=== PATIENT | female | born 2000 ===

== ENCOUNTER 2018-02-28 22:56 | Emergency (ER) | payer SELFPAY ==
[2018-02-28 23:05] VITALS: BP 105/68; PULSE 98; RESP 16; TEMP 99; O2SAT 100
--- NOTE | 2018-02-28 23:28 | ED PDOC ---
Upper Extremity Pain/Injury Time Seen by Provider: 02/28/18 23:04 Chief Complaint (Nursing): Upper Extremity Problem/Injury Chief Complaint (Provider): Left shoulder pain, 5 days History Per: Patient History/Exam Limitations: no limitations Onset/Duration Of Symptoms: Days Additional Complaint(s): 17 yo female with no medical problems presents for evaluation of left shoulder pain x 3 days. Pt states the first day she thought she slept on it wrong. PT reports dull pain at rest and much worse when attempting to move left shoulder. No trauma. PT denies change in activities but states the night before pain she did do the dishes. No similar in the past. No numbness/tingling. Past Medical History Reviewed: Historical Data, Nursing Documentation, Vital Signs Vital Signs: Last Vital Signs Temp 99 F 02/28/18 23:02 Pulse 98 H 02/28/18 23:02 Resp 16 02/28/18 23:02 BP 105/68 02/28/18 23:02 Pulse Ox 100 02/28/18 23:02 - Medical History PMH: No Chronic Diseases - Surgical History Surgical History: No Surg Hx - Family History Family History: States: No Known Family Hx - Living Arrangements Living Arrangements: With Family - Social History Current smoker - smoking cessation education provided: No - Allergies Allergies/Adverse Reactions: Allergies Allergy/AdvReac Type Severity Reaction Status Date / Time cat dander Allergy RASH Verified 02/28/18 23:06 dog dander Allergy RASH Verified 02/28/18 23:06 hazelnut Allergy RASH Verified 02/28/18 23:06 Review of Systems ROS Statement: Except As Marked, All Systems Reviewed And Found Negative Constitutional: Negative for: Fever, Chills Musculoskeletal: Positive for: Shoulder Pain Skin: Negative for: Rash Physical Exam - Reviewed Nursing Documentation Reviewed: Yes Vital Signs Reviewed: Yes - Physical Exam Appears: Positive for: Well, Non-toxic, No Acute Distress Head Exam: Positive for: ATRAUMATIC, NORMAL INSPECTION, NORMOCEPHALIC Skin: Positive for: Normal Color, Warm, DRY Eye Exam: Positive for: Normal appearance ENT: Positive for: Normal ENT Inspection Neck: Positive for: Normal Cardiovascular/Chest: Negative for: Bradycardia, Tachycardia Respiratory: Negative for: Accessory Muscle Use, Respiratory Distress Pulses-Radial (L): 2+ Pulses-Radial (R): 2+ Back: Positive for: Normal Inspection Extremity: Positive for: Capillary Refill. Negative for: Normal ROM (Decreased shoulder abduction ), Tenderness, Deformity, Swelling Neurologic/Psych: Positive for: Alert, Oriented - ECG O2 Sat by Pulse Oximetry: 100 Medical Decision Making Medical Decision Making: XR normal. Disposition - Clinical Impression Clinical Impression: Shoulder pain - Patient ED Disposition Is Patient to be Admitted: No Counseled Patient/Family Regarding: Diagnosis, Need For Followup - Disposition Referrals: Mir Melchor III, MD [Staff Provider] - [facility] [Outside] [facility] [place] [Outside] Disposition: Routine/Home Disposition Time: 23:28 Condition: GOOD Instructions: Shoulder Pain (DC) Forms: [employer] (Greenlandic)
--- NOTE | 2018-03-01 16:36 | RAD ---
Date of service: 02/28/2018 PROCEDURE: Radiographs of the Left Shoulder HISTORY: pain, decreased ROM COMPARISON: No prior. FINDINGS: BONES: Normal. No fracture. JOINTS: Normal. Glenohumeral and acromioclavicular joints preserved. No osteoarthritis. SOFT TISSUES: Normal. OTHER FINDINGS: None. IMPRESSION: Normal radiographs of the left shoulder.
== END 2018-02-28 23:45 | disposition home or self-care (01) ==
LOC: H.ER 22:56
DX: M25.512 Pain in left shoulder (principal)